=== PATIENT | male | born 1980 ===

== ENCOUNTER 2022-12-13 05:02 | Day surgery (SDC) | payer OTHER ==
[2022-12-09 15:11] VITALS: BMI 38.2
[2022-12-13] MEDS ORDERED: TETRACAINE/BENZOCAINE/BUTAMBEN 20 GM SPR TP ONE (10:25)
[2022-12-13 10:52] VITALS: TEMP 98.2
[2022-12-13 11:22] VITALS: PULSE 86
[2022-12-13 11:27] VITALS: BP 142/82; RESP 16
== END 2022-12-13 11:20 | disposition home or self-care (01) ==
LOC: JASU-ENDO 05:02
PROVIDERS: ATTEND Student in an Organized Health Care Education/Training Program
PROC: 0DB68ZX Excision of Stomach, Via Natural or Artificial Opening Endoscopic, Diagnostic (ICD-10-PCS; principal; 2022-12-13 10:30)
DX: K29.50 Unspecified chronic gastritis without bleeding (principal); I10 Essential (primary) hypertension
CPT/HCPCS: 88305-TC; 88342-TC